=== PATIENT | male | born 1940 | race Caucasian/White ===

== ENCOUNTER → 2016-07-28 | Outpatient (CLI) | payer OTHER, MEDICARE | LOC: BHFA 16:00 | PROVIDERS: ATTEND Internal Medicine Cardiovascular Disease | DX: I47.2 Ventricular tachycardia (principal) ==

== ENCOUNTER → 2016-08-02 | Outpatient (CLI) | payer OTHER, MEDICARE | LOC: BHFA 11:30 | PROVIDERS: ATTEND Internal Medicine Cardiovascular Disease | DX: R94.31 Abnormal electrocardiogram [ECG] [EKG] (principal) | CPT/HCPCS: 78452; 93017; 93306; A9500; J2785 ==

== ENCOUNTER → 2016-08-03 | Day surgery (SDC) | payer OTHER, MEDICARE ==
[~2016-08-03] MED LIST: ATORVASTATIN CALCIUM 20 MG TAB PO SCH; ISOPROTERENOL HCL 0.2 MG/ML 5ML AMP ONE; LEVOTHYROXINE 125 MCG TAB PO SCH; LISINOPRIL 40 MG TAB PO SCH; METOPROLOL TARTRATE 25 MG TAB PO SCH; MIDAZOLAM 2 MG/2 ML VIAL IVP ONE; NS 1,000 ML IV ONE; PROBENECID 500 MG TAB PO SCH; PROPOFOL 200 MG/20 ML VIAL ONE; fentaNYL 100 MCG/2 ML INJ ONE; metFORMIN HCL 500 MG TAB PO SCH
--- NOTE | 2016-08-03 13:34 | CPEKG ---
Heart Rate: 82 RR Interval: 732 P-R Interval: 166 QRSD Interval: 160 QT Interval: 428 QTC Interval: 500 P Sisters: 103 QRS Sisters: -64 T Wave Sisters: 85 EKG Severity - ABNORMAL ECG - EKG Impression: ATRIAL-SENSED VENTRICULAR-PACED COMPLEXES Electronically Signed By: Shin Fierro 03-Aug-2016 15:53:00
[2016-08-03 14:13] LABS: % IMMATURE GRANULYOCYTES 0.1 % (0.0-1.1); ABSOLUTE IMMATURE GRANULOCYTES 0.01 10^3/uL (0.00-0.10); ADD DIFF? NO; ADD MORPH? NO; ADD SCAN? NO; ATYPICAL LYMPHOCYTE FLAG 10 (0-99); FRAGMENT RBC FLAG 0 (0-99); HEMATOCRIT 42.2 % (40.0-51.0); HEMOGLOBIN 13.8 g/dL (13.7-17.5); LEFT SHIFT FLG 0 (0-99); LIPEMIA HEMOLYSIS FLAG 80 (0-99); MEAN CELL HEMOGLOBIN 30.2 pg (27.9-34.1); MEAN CELL HEMOGLOBIN CONCENTR. 32.7 g/dL (32.4-36.7); MEAN CELL VOLUME 92.3 fL (81.5-99.8); MEAN PLATELET VOLUME 9.1 fL (8.7-11.7); PLATELET CLUMPS FLAG 20 (0-99); PLATELET COUNT 320 10^3/uL (150-400); RED BLOOD CELL COUNT 4.57 10^6/uL (4.40-6.38); RED CELL DISTRIBUTION WIDTH 13.5 % (11.5-15.2)
[2016-08-03 14:26] LABS: INR 0.99 (0.83-1.16)
[2016-08-03 14:27] LABS: APTT 25.3 SEC (23.0-38.0)
[2016-08-03 14:33] LABS: ANION GAP 12 mEq/L (8-16); CALCIUM 9.6 mg/dL (8.5-10.4); CARBON DIOXIDE 24 mEq/l (22-31); CHLORIDE 103 mEq/L (97-110); CREATININE 1.1 mg/dL (0.7-1.3); GLOMERULAR FILTRATION RATE > 60; GLUCOSE 85 mg/dL (70-100); MAGNESIUM 1.7 mg/dL (1.6-2.3); POTASSIUM 4.2 mEq/L (3.5-5.2); SODIUM 139 mEq/L (134-144)
--- NOTE | 2016-08-03 17:09 | EPPROC ---
Electrophysiology Procedure Note: NON INVASIVE PROGRAMMED STIMULATION INDICATION VT (10 seconds, 200 bpm) PROCEDURE PERFORMED 37.20 Non-invasive programmed electrical stimulation [NIPS] 33204-52 Programmed stimulation + pacing after IV drug Reprogramming of dual chamber pacemaker The patient arrived in the Electrophysiology Laboratory in the fasting state. Appropriate non-invasive blood pressure, pulse oximetry and end-tidal CO2 monitoring was established. Anesthesiologist Dr. Yanet Solares administered propofol sedation. Defibrillator hands free patches were attached to the anterolateral chest wall and attached to the defibrillator. Programmed stimulation from the RV pacemaker lead using standard protocol (2 CL , 3 extrastimuli, +/- isoproterenol). No arrhythmias were induced. Patient left the EP lab in stable condition. Patient Problems: Problems Problem Status Onset Ventricular arrhythmia Acute Primary osteoarthritis of left knee Acute 2Nd degree AV block Acute 2nd degree Acute
== END | disposition home or self-care (01) ==
LOC: FCATH 12:52
PROVIDERS: ATTEND Internal Medicine Cardiovascular Disease
PROC: 5A1213Z Performance of Cardiac Pacing, Intermittent (ICD-10-PCS; principal; 2016-08-03)
PROC: 4B02XSZ Measurement of Cardiac Pacemaker, External Approach (ICD-10-PCS; principal; 2016-08-03)
DX: I47.2 Ventricular tachycardia (principal); I44.1 Atrioventricular block, second degree; I10 Essential (primary) hypertension; Z95.0 Presence of cardiac pacemaker; E66.9 Obesity, unspecified; I25.10 Atherosclerotic heart disease of native coronary artery without angina pectoris; E11.9 Type 2 diabetes mellitus without complications
CPT/HCPCS: J2704; J3010

== ENCOUNTER → 2016-09-29 | Outpatient (CLI) | payer OTHER, MEDICARE | LOC: BHFA 15:45 | PROVIDERS: ATTEND Internal Medicine Cardiovascular Disease | DX: Z95.0 Presence of cardiac pacemaker (principal) ==

== ENCOUNTER 2016-12-08 06:03 | Inpatient (IN) | payer OTHER, MEDICARE ==
[2016-11-06 10:17] LABS: % IMMATURE GRANULYOCYTES 0.4 % (0.0-1.1); ABSOLUTE IMMATURE GRANULOCYTES 0.03 10^3/uL (0.00-0.10); ADD DIFF? NO; ADD MORPH? NO; ADD SCAN? NO; ATYPICAL LYMPHOCYTE FLAG 0 (0-99); FRAGMENT RBC FLAG 0 (0-99); HEMATOCRIT 40.2 % (40.0-51.0); HEMOGLOBIN 13.1 g/dL (13.7-17.5); LEFT SHIFT FLG 0 (0-99); LIPEMIA HEMOLYSIS FLAG 80 (0-99); MEAN CELL HEMOGLOBIN 30.1 pg (27.9-34.1); MEAN CELL HEMOGLOBIN CONCENTR. 32.6 g/dL (32.4-36.7); MEAN CELL VOLUME 92.4 fL (81.5-99.8); MEAN PLATELET VOLUME 8.8 fL (8.7-11.7); PLATELET CLUMPS FLAG 0 (0-99); PLATELET COUNT 267 10^3/uL (150-400); RED BLOOD CELL COUNT 4.35 10^6/uL (4.40-6.38); RED CELL DISTRIBUTION WIDTH 13.5 % (11.5-15.2)
[2016-11-06 10:35] LABS: ALANINE AMINOTRANSFERASE 22 IU/L (21-72); ALBUMIN 3.7 g/dL (3.5-5.0); ALKALINE PHOSPHATASE 59 IU/L (38-126); ANION GAP 11 mEq/L (8-16); ASPARTATE AMINOTRANSFERASE 15 IU/L (17-59); BILIRUBIN,TOTAL 0.5 mg/dL (0.1-1.4); CALCIUM 9.1 mg/dL (8.5-10.4); CARBON DIOXIDE 23 mEq/l (22-31); CHLORIDE 107 mEq/L (97-110); CREATININE 1.1 mg/dL (0.7-1.3); GLOMERULAR FILTRATION RATE > 60; GLUCOSE 88 mg/dL (70-100); POTASSIUM 4.2 mEq/L (3.5-5.2); SODIUM 141 mEq/L (134-144); TOTAL PROTEIN 6.5 g/dL (6.3-8.2)
[~2016-12-08 06:03] MED LIST changes: -ATORVASTATIN CALCIUM 20 MG TAB PO SCH; -ISOPROTERENOL HCL 0.2 MG/ML 5ML AMP ONE; -LEVOTHYROXINE 125 MCG TAB PO SCH; -LISINOPRIL 40 MG TAB PO SCH; -METOPROLOL TARTRATE 25 MG TAB PO SCH; -MIDAZOLAM 2 MG/2 ML VIAL IVP ONE; -NS 1,000 ML IV ONE; +NS IV ONE; +POVIDONE-IODINE 20 ML in SODIUM CL IRRIG SOLUTION 500 ML IRR ONE; -PROBENECID 500 MG TAB PO SCH; -PROPOFOL 200 MG/20 ML VIAL ONE; +ROPIVACAINE 0.2% 80 MG, EPINEPHrine 0.2 MG, KETOROLAC TROMETHAMINE 30 MG in BAG 0 ML IU ONE; +TRANEXAMIC ACID IV ONE; -fentaNYL 100 MCG/2 ML INJ ONE; -metFORMIN HCL 500 MG TAB PO SCH
[2016-12-08] MEDS ORDERED: FAMOTIDINE 20 MG TAB PO ONE (06:10)
[2016-12-08] MEDS ORDERED: DEXAMETHASONE 4 MG/ML VIAL IVP ONE (06:10)
[2016-12-08] MEDS ORDERED: ACETAMINOPHEN 325 MG TAB PO ONE (06:10)
[2016-12-08] MEDS ORDERED: LR 1,000 ML IV ONE (06:28)
[2016-12-08] MEDS ORDERED: LIDOCAINE 1% 2 ML INJ ID PRN (06:28)
--- NOTE | 2016-12-08 06:41 | PDHPUP ---
History & Physical Update H&P update statement: This history and physical update is based on an assessment of the patient which was completed after admission or registration (within 24 hours), but prior to the surgery/procedure. H&P update: H&P reviewed & patient examined, no change in patient's condition since H&P completed
[2016-12-08] MEDS ORDERED: VANCOMYCIN 1 GM VIAL ONE (06:47)
[2016-12-08] MEDS ORDERED: ceFAZolin 1 GM/5 ML SYR ONE (06:48)
[2016-12-08] MEDS ORDERED: MIDAZOLAM 2 MG/2 ML VIAL IVP ONE (07:02)
[2016-12-08] MEDS ORDERED: MIDAZOLAM 2 MG/2 ML VIAL ONE (07:04)
--- NOTE | 2016-12-08 07:04 | PDANEPAE ---
ANE History of Present Illness 76 yo for R TKA ANE Past Medical History - Cardiovascular History Hx Hypertension: Yes Hx Arrhythmias: Yes Hx Chest Pain: No Hx Coronary Artery / Peripheral Vascular Disease: Yes Hx CHF / Valvular Disease: No Hx Palpitations: No Cardiovascular History Comment: SECOND DEGREE BLOCK. 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 INSTRUCTED TO BRING DOS - Neurologic History Hx Cerebrovascular Accident: No Hx Seizures: No Hx Dementia: No - Endocrine History Hx Diabetes: Yes Endocrine History Comment: TYPE 2 DIABETES. HYPOTHYROID - Renal History Hx Renal Disorders: Yes Renal History Comment: HX OF KIDNEY STONE - Liver History Hx Hepatic Disorders: No - Neurological & Psychiatric Hx Hx Neurological and Psychiatric Disorders: No - Cancer History Hx Cancer: No - Congenital Disorder History Hx Congenital Disorders: No - GI History Hx Gastrointestinal Disorders: No Gastrointestinal History Comment: POSS POLYP X 1 5-6 Y AGO - Other Health History Other Health History: OSTEOARTHRITIS. GOUT. MISSING TEETH - Chronic Pain History Chronic Pain: Yes (RT KNEE) - Surgical History Prior Surgeries: PACEMAKER 2015. LT TOTAL KNEE 12/2013. KNEE SCOPE UNKNOWN SIDE ANE Review of Systems Review of Systems: - Exercise capacity METS (RN): 4 METS - Pacemaker Pacemaker Contracts Specialist: [employer] Date Pacemaker Last Checked: 09/28/2016 ANE Patient History - Allergies Allergies/Adverse Reactions: No Known Allergies Allergy (Verified 08/03/16 14:39) - Home Medications Home medications: home medication list seen and reviewed Home Medications: Atorvastatin Calcium [Lipitor 20 mg (*)] 10 mg PO DAILY AT 6PM 08/03/16 [Last Taken 08/02/16] Levothyroxine Sodium 125 mcg PO DAILY06 08/03/16 [Last Taken 08/02/16] Lisinopril 40 mg PO DAILY06 08/03/16 [Last Taken 08/01/16] Metformin HCl mg PO BIDMEAL 08/03/16 [Last Taken 08/01/16] Metoprolol Tartrate [Lopressor 25 mg (*)] 25 mg PO BID 08/03/16 [Last Taken ] Probenecid 500 mg PO BID 08/03/16 [Last Taken 08/01/16] - NPO status NPO Status: no food or drink >8 hours NPO Since - Liquids (Date): 12/07/16 NPO Since - Liquids (Time): 18:00 NPO Since - Solids (Date): 12/07/16 NPO Since - Solids (Time): 15:00 - Anes Hx Anes Hx: no prior problems - Smoking Hx Smoking Status: Former smoker - Family Anes Hx Family Hx Anesthesia Complications: NONE ANE Labs/Vital Signs - Labs Result Diagrams: 11/06/16 10:05 11/06/16 10:05 - Vital Signs Blood Pressure: 134/72 Heart Rate: 78 Respiratory Rate: 16 O2 Sat (%): 90 Height: 5 ft 6 in Weight: 113.398 kg ANE Physical Exam - Airway Neck exam: FROM Mallampati Score: Class 2 Mouth exam: normal dental/mouth exam - Pulmonary Pulmonary: no respiratory distress - Cardiovascular Cardiovascular: regular rate and rhythym - ASA Status ASA Status: III ANE Anesthesia Plan Anesthesia Plan: spinal Regional Anesthesia: adductor canal FNB
[2016-12-08] MEDS ORDERED: fentaNYL 100 MCG/2 ML INJ ONE (07:12)
[2016-12-08] MEDS ORDERED: PROPOFOL/EMULSION 500 MG/50 ML BOTTLE IV ONE (07:13)
[2016-12-08] MEDS: ceFAZolin 2 GM/SWFI 2 GM/20 ML SYR IVP ONE ×2 (07:28→08:10)
[2016-12-08] MEDS ORDERED: NS IV ONE (07:45)
[2016-12-08] MEDS ORDERED: TRANEXAMIC ACID IV ONE (07:45)
[2016-12-08] MEDS ORDERED: ROPIVACAINE HCL 150 MG/30 ML INJ ONE (08:30)
[2016-12-08] MEDS ORDERED: clonIDINE 1 MG/10 ML VIAL EP ONE (08:31)
[2016-12-08] MEDS ORDERED: ONDANSETRON 4 MG/2 ML VIAL IVP PRN ×2 (08:50→09:02)
[2016-12-08] MEDS ORDERED: HYDROmorphONE/DILAUDID 1 MG/ML INJ IVP PRN (08:50)
[2016-12-08] MEDS ORDERED: NALOXONE HCL 0.4 MG/ML INJ IVP PRN (08:50)
[2016-12-08] MEDS ORDERED: fentaNYL 100 MCG/2 ML INJ IVP PRN (08:50)
--- NOTE | 2016-12-08 08:53 | POSTOPPROG ---
Post Op Note Date of Operation: 12/08/16 Surgeon: Jasper Maya Traffic Attendant: Eloisa Muñoz Anesthesiologist: Dr. Heart Anesthesia: IV Sedation, Spinal Post-op Diagnosis: Right knee severe degenerative arthritis Procedure: Right total knee arthroplasty Inf/Abcess present in the surg proc area at time of surgery?: No EBL: 50-100 (Adductor canal block in PACU)
[2016-12-08] MEDS ORDERED: diphenhydrAMINE 25 MG CAP PO PRN (09:02)
[2016-12-08] MEDS ORDERED: POLYETHYLENE GLYCOL 3350 17 GM PKT PO PRN (09:02)
[2016-12-08] MEDS ORDERED: PROMETHAZINE HCL 25 MG SUPPR PR PRN (09:02)
[2016-12-08] MEDS ORDERED: ONDANSETRON DISINTEGRATING 4 MG TAB PO PRN (09:02)
[2016-12-08] MEDS ORDERED: PROMETHAZINE HCL 25 MG/ML INJ IVP PRN (09:02)
[2016-12-08] MEDS ORDERED: METOCLOPRAMIDE 10 MG/2 ML VIAL IVP PRN (09:02)
[2016-12-08] MEDS ORDERED: LACTULOSE 20 GM/30 ML UDCUP PO PRN (09:02)
[2016-12-08] MEDS ORDERED: CYCLOBENZAPRINE 10 MG TAB PO PRN (09:02)
[2016-12-08] MEDS ORDERED: traMADol 50 MG TAB PO PRN (09:02)
[2016-12-08] MEDS ORDERED: DIPHENOXYLATE/ATROPINE LOMOTIL 1 TAB PO PRN (09:02)
[2016-12-08] MEDS ORDERED: MAGNESIUM HYDROXIDE 30 ML UDCUP PO PRN (09:02)
[2016-12-08] MEDS ORDERED: BISACODYL 10 MG SUPP PR PRN (09:02)
[2016-12-08] MEDS ORDERED: KETOROLAC 30 MG/1 ML SDV IVP PRN (09:02)
[2016-12-08] MEDS ORDERED: oxyCODONE IR 5 MG TAB PO PRN (09:02)
[2016-12-08] MEDS ORDERED: TEMAZEPAM 15 MG CAP PO PRN (09:02)
[2016-12-08] MEDS ORDERED: LR 1,000 ML IV SCH (09:30)
--- NOTE | 2016-12-08 10:09 | POSTANESTH ---
Post Anesthetic Evaluation Cardiovascular Status: Normal, Stable Respiratory Status: Normal, Stable Level of Consciousness/Mental Status: Can Participate in Eval Pain Control: Adequate, Prn Tx Ordered Nausea/Vomiting Control: Adequate, Prn Tx Ordered Complications Possibly Related to Anesthesia: None Noted
[2016-12-08] MEDS: TRANEXAMIC ACID 650 MG TAB PO SCH ×2 (11:41→19:00)
[2016-12-08] MEDS: ACETAMINOPHEN 325 MG TAB PO SCH ×3 (11:41→23:59)
--- NOTE | 2016-12-08 13:37 | GOP ---
[f rep st] OPERATIVE REPORT DATE OF OPERATION: 12/08/2016 SURGEON: Jasper Maya MD OIL FIELD TESTER: Ze Albarran and Rayn Muñoz. ANESTHESIA: A combination of Marcaine, spinal, IV sedation, and adductor canal block. PREOPERATIVE DIAGNOSIS: Right knee severe degenerative arthritis, with varus deformity. POSTOPERATIVE DIAGNOSIS: Right knee severe degenerative arthritis, with varus deformity. PROCEDURE PERFORMED: A right total knee arthroplasty, cemented, Delgado and Nephew Journey II, posteri or stabilized. FINDINGS: DESCRIPTION OF PROCEDURE: The patient was given 2 g of preoperative IV Ancef within 60 minutes of stephenson rgery. He also received IV tranexamic acid at a dose of 10 mg/kg. He was placed on the operating ro om table and given spinal anesthesia, with Marcaine, by Dr. Ivory. He was then placed supine and given IV sedation. A Jenkins catheter was not used. He wore a JESSI stocking and SCD on the nonoperativ e leg. A bolster was placed under his right hip to prevent excessive external rotation of the leg. His right lower extremity was prepped with ChloraPrep from the upper thigh tourniquet to the tips of the toes. It was draped free using sterile sheets, stockinette, and Ioban plastic adhesive drape. T he lower leg was wrapped with compressive Coban. The leg was exsanguinated with elevation and a 6-in ch compressive wrap, and the pneumatic tourniquet was inflated to 300 mmHg. He had a short bulky thi gh. The World Health Organization time-out was performed to verify the correct patient identity and the c orrect surgical side. The [place] time-out was also performed. The TrustDegreesayo leg holding device was sterilely attached to the operating room table and used throughout the procedure to help position the knee. A straight midline incision was made centered on the patell a. Subcutaneous tissues were sharply divided, and hemostasis was obtained using electrocautery. A medial subcutaneous flap was developed, and the capsule and synovium were opened in a medial parapa tellar fashion. Extensive degenerative changes were present in the medial compartment and patellofem oral joint. The medial capsule and periosteum were elevated off the rim of the medial tibial plateau , all the way around to the posteromedial corner. The medial collateral ligament was released enough to balance the medial side of the knee. In order to improve exposure, his patella was prepared first. The original thickness of the patella was measured. Peripheral osteophytes were removed. I cut a flat surface on the back of the patella. His patella was sized for a 38 mm resurfacing component. I removed enough bone from the patella, s uch that the remaining bone plus the thickness of the patellar component recreated the original thick ness of the patella. The composite thickness was 24 mm. The intramedullary alignment guide system was used to set up the distal femoral cut. The distal femu r was cut in 5 degrees of valgus. Because of a slight preoperative flexion contracture, I made a +2 mm cut on the distal femur. The sizing jig was used to determine proper femoral sizing. He was a tr ue size 6 without a shift. The 5-in-1 cutting block was applied, and the anterior and posterior cond ylar cuts and chamfer cuts were made. The final jig was used to remove the central portion of the di stal femur to accommodate the posterior stabilized femoral component. I was careful to determine pro per rotation by referencing off [place] line. Each cut was checked for accuracy before and after i t was made. The femur was sized for a size 6 posterior stabilized component. The trial component wa s tapped securely into place and was an excellent fit. Next, the tibia was prepared. The proximal tibial cut was made using the extramedullary alignment gu janay system. The cut was made in a few degrees of posterior slope. I was careful to achieve proper v arus/valgus alignment and proper rotation. The posterior compartment was cleared of meniscal remnant s. Osteophytes were removed from the back of the femoral condyles. I checked his flexion and extens ion gaps. He was still a little bit tight medially, and so I did some additional distal release of h is medial collateral ligament. At that point, his flexion and extension gaps were equal and balanced . His tibia was sized for a size 5 component. With the trial components in place, I selected a 9 mm po lyethylene posterior stabilized tibial insert. The knee came to full extension and flexed to 120 deg bee. There was no overstuffing in flexion. His collateral ligaments were stable and balanced in 90 degrees of flexion and full extension. The trial patellar button was applied, and tracking was chec ked. Tracking was excellent without any digital pressure. 40 mL of the joint anesthetic cocktail was injected into the posterior capsule, the periarticular str uctures, the quadriceps muscle and tendon areas, and the subcutaneous tissues along the skin edges. A second dose of IV tranexamic acid was given at a dose of 10 mg/kg. The surfaces were prepared for cementing. They were carefully cleaned with the pulsating lavage irri gation and thoroughly dried. The CarboJet device was used to blow dry the cancellous surfaces. A do uble batch of high-viscosity methylmethacrylate cement with 2 g of powdered vancomycin added was mixe d. While it was still in a semi-liquid state, all 3 components were cemented in place. Excess cemen t was removed before it hardened. The 9 mm trial tibial insert was re-tried and was the proper thickness. The actual component was ins erted and locked into place. The knee was thoroughly irrigated 1 final time with a dilute Betadine s olution. The tourniquet was deflated. Total tourniquet time was 50 minutes. The vastus medialis portion of the extensor mechanism was repaired with several interrupted figure-of -eight #2 FiberWire sutures. The capsule and synovium were closed first with multiple interrupted fi [id number]-[id number] 0 PDS sutures, followed by a running #2 barbed Ethicon Stratafix PDO suture. The subcu taneous tissues were closed with a running 0 barbed Ethicon Stratafix Monoderm suture. The skin was closed with a running 3-0 barbed Ethicon Stratafix Monoderm subcuticular suture. The skin was sealed with half-inch Steri-Strips. The wound was covered with Xeroform gauze and flat 4 x 4's. The knee was wrapped with Kerlix and 6-inch compressive wrap. A long-leg JESSI stocking and SCD were applied, f ollowed by the cooling device. He wore a stocking and SCD on the opposite leg during the procedure. I used a size 6 cemented Delgado and Nephew Oxinium posterior stabilized femoral component, a size 5 ce mented tibial base plate, a 9 mm posterior stabilized tibial insert, and a 38 mm cemented round all-p olyethylene resurfacing patellar component. The estimated blood loss following placement of the tourniquet was 100 cc. The sponge and needle cou nt were correct on 2 occasions. The patient was awakened from anesthesia, transferred to his hospital [facility], and taken to PACU in sa tisfactory condition. There were no recognized intraoperative complications. In the PACU, for additional postoperative pain control, Dr. Ivory performed an adductor canal bloc kSheeba Albarran and Ryan Muñoz acted as surgical assistants. Their assistance was a medical necess ity for safe completion of the procedure. /[id number]/MODL
[2016-12-08] MEDS: ceFAZolin 2 GM/DEXTROSE 100 ML IV SCH ×2 (16:46→23:59)
[2016-12-08] MEDS: FAMOTIDINE 20 MG TAB PO SCH (20:19)
[2016-12-08] MEDS: metFORMIN HCL 500 MG TAB PO SCH (20:19)
[2016-12-08] MEDS: ASPIRIN 325 MG TAB PO SCH (20:19)
[2016-12-08] MEDS: METOPROLOL TARTRATE 25 MG TAB PO SCH (20:20)
[2016-12-08] MEDS: SENNOSIDES/DOCUSATE SODIUM TAB PO SCH (20:20)
[2016-12-08] MEDS ORDERED: PNEUMOC 13-VAL CONJ-DIP CRM/PF 0.5 ML SYR IM ONE (21:25)
[2016-12-08] MEDS ORDERED: FLU VACC QS 2017-18 (3YR+)/PF 0.5 ML SYR (FLUARIX QUAD) IM ONE ×2 (21:25→23:56)
[2016-12-09] MEDS: TRANEXAMIC ACID 650 MG TAB PO SCH (01:08)
[2016-12-09 04:23] VITALS: RESP 16
[2016-12-09 05:26] LABS: HEMATOCRIT 36.9 % (40.0-51.0); HEMOGLOBIN 11.8 g/dL (13.7-17.5)
[2016-12-09] MEDS: ACETAMINOPHEN 325 MG TAB PO SCH ×2 (05:50→13:54)
[2016-12-09] MEDS ORDERED: LISINOPRIL 40 MG TAB PO SCH (06:00)
[2016-12-09] MEDS ORDERED: LEVOTHYROXINE 125 MCG TAB PO SCH (06:00)
--- NOTE | 2016-12-09 07:25 | SOAPPROG ---
SOAP Progress Note Assessment/Plan: Assessment: Afebrile. Awake and alert. Very little pain. He has been up and walking in the room. His dressing is dry. Postop films look excellent. Plan: Continue physical therapy. Dressing change before discharge. Discharged later today. 12/09/16 07:24 Objective: Vital Signs Temp Pulse Resp BP Pulse Ox 36.9 C 64 16 121/65 H 97 12/09/16 07:16 12/09/16 07:16 12/09/16 07:16 12/09/16 07:16 12/09/16 07:16 Laboratory Results 12/09/16 04:20 11/06/16 10:05 12/08/16 12/09/16 12/10/16 05:59 05:59 05:59 Intake Total 1410 325 Output Total 700 Balance 710 325 ICD10 Worksheet Patient Problems: Problems Problem Status Onset Osteoarthritis of right knee Acute 2Nd degree AV block Acute 2nd degree Acute Primary osteoarthritis of left knee Acute Ventricular arrhythmia Acute
--- NOTE | 2016-12-09 07:40 | GDS ---
[f rep st] DISCHARGE SUMMARY ADMISSION DIAGNOSIS: Right knee arthritis. DISCHARGE DIAGNOSIS: Right knee arthritis. TEST PERFORMED: 12/08/2016: Right total knee arthroplasty. POSTOPERATIVE COMPLICATIONS: None. CONDITION ON DISCHARGE: Improved. DESCRIPTION OF HOSPITAL COURSE: The patient was admitted to the hospital the morning of surgery. Hi s admission CBC was normal. The same day, he underwent a right total knee arthroplasty. Postoperati vely, he was treated with multimodal DVT prophylaxis, including aspirin and early mobilization. On t he first postoperative day his hemoglobin and hematocrit were 11.8 and 36.9. He was seen by Physical Therapy and made excellent progress with ambulation, knee range of motion and stairs. By the time o f discharge, he was afebrile and was independent walking with a walker. DISPOSITION: The patient discharged to his home. He will go to outpatient physical therapy at [facility] next week. He may progress to full weightbearing on the right as tolerated. Continue aspirin 3 25 mg p.o. daily for 21 days. He has prescriptions for oxycodone and tramadol for pain control. Use JESSI stockings for 1 week. I will see him back in the office on December 23, 2016. If there are any problems, he is to call me at the office. /[id number]/MODL
[2016-12-09] MEDS ORDERED: FERROUS SULFATE 140 MG TAB.ER PO SCH (09:00)
[2016-12-09] MEDS ORDERED: ATORVASTATIN CALCIUM 20 MG TAB PO SCH (09:00)
[2016-12-09] MEDS: ASPIRIN 325 MG TAB PO SCH (09:52)
[2016-12-09] MEDS: metFORMIN HCL 500 MG TAB PO SCH (09:53)
[2016-12-09] MEDS: SENNOSIDES/DOCUSATE SODIUM TAB PO SCH (09:53)
[2016-12-09] MEDS: METOPROLOL TARTRATE 25 MG TAB PO SCH (09:54)
[2016-12-09] MEDS: FAMOTIDINE 20 MG TAB PO SCH (09:57)
[2016-12-09 11:14] VITALS: BP 120/64; PULSE 70; O2SAT 91
[2016-12-09 11:16] VITALS: TEMP 98.3
--- NOTE | 2016-12-09 11:24 | ASMTCMCOM ---
CM Note CM Note Notes: PT/OT clear pt for home. Pt medically stable for d/c, no CM d/c needs identified. Date Signed: 12/09/2016 11:23 AM Electronically Signed By:RICHIE Richards
--- NOTE | 2016-12-09 16:24 | ASDISCHSUM ---
Discharge Information Plan Status:Home with No Needs Medically Cleared to Leave: Discharge Date:12/09/2016 01:48 PM CM D/C Disposition:Home, Routine, Self-Care ADT D/C Disposition:Home, Routine, Self-Care Projected Discharge Date:02/12/2017 11:00 AM Transportation at D/C: Discharge Delay Reason: Follow-Up Date:02/12/2017 11:00 AM Discharge Slot: Final Diagnosis: Placement Information Referral Type:Palliative Care Referral ID:[id number] Provider Name: Address 1: Phone Number: Address 2: Fax Number: City: Selection Factors: State: Patient Contact Information Contact Name:JASMIN Relationship: Address:[address] Work Phone: Joe:[facility] Phone: [facility] Code:[place] [address] Email: Financial Information Financial Class: Primary Plan Desc:MEDICARE INPATIENT Primary Plan Number:[id number] Secondary Plan Desc:AARP/MDR SUPPLEMENT Secondary Plan Number:[id number] Assessment Information CM Consumer Marketing Specialist Assessment CJR Did you go to joint Answers: No (why?) Notes: Had the same surgery 3 class? years ago CM Note CM Note Notes: Spoke with [place] today, November 23. He stated that he has had this surgery 3 years ago, so is prepared for what is to come. [place] [address] [place] and his will be taking him to and from. His will also be caring for him post surgery. He does not believe he will need any accommodations post surgery from the Case Management team. Date Signed: 11/23/2016 10:49 AM Electronically Signed By:Beartiz Marquis [facility] Progress Note CM Note CM Note Notes: PT/OT clear pt for home. Pt medically stable for d/c, no CM d/c needs identified. Date Signed: 12/09/2016 11:23 AM Electronically Signed By:RICHIE Richards Intervention Information
== END 2016-12-09 13:48 | disposition home or self-care (01) | DRG 470 ==
LOC: F3N 06:03 → EDSTATUS 07:15 → F3N 10:47
PROVIDERS: ADMIT Orthopaedic Surgery; ATTEND Orthopaedic Surgery
PROC: 0SRC0J9 Replacement of Right Knee Joint with Synthetic Substitute, Cemented, Open Approach (ICD-10-PCS; principal; 2016-12-08 07:15)
DX: M17.11 Unilateral primary osteoarthritis, right knee (principal); I10 Essential (primary) hypertension; G47.33 Obstructive sleep apnea (adult) (pediatric); E11.9 Type 2 diabetes mellitus without complications; E03.9 Hypothyroidism, unspecified; M10.9 Gout, unspecified; Z95.0 Presence of cardiac pacemaker; Z23 Encounter for immunization
CPT/HCPCS: 97116-GP; 97161-GP; 97165-GO; C1713; G0008; G0009; G8978-GP-CJ; G8979-GP-CI; G8980-GP-CI; G8987-GO-CI; G8988-GO-CI; G8989-GO-CI; J0171; J0690; J0735; J1100; J1885; J2250; J2704; J2795; J3010; J3370

== ENCOUNTER → 2018-05-04 | Outpatient (CLI) | payer OTHER, MEDICARE | LOC: FIMAGING 10:11 | PROVIDERS: ATTEND Specialist | DX: N20.0 Calculus of kidney (principal) ==

== ENCOUNTER → 2018-05-08 | Outpatient (CLI) | payer OTHER, MEDICARE ==
[~2018-05-08] MED LIST changes: +IOPAMIDOL (ISOVUE-300) 100 ML BTL ONE; -NS IV ONE; -POVIDONE-IODINE 20 ML in SODIUM CL IRRIG SOLUTION 500 ML IRR ONE; -ROPIVACAINE 0.2% 80 MG, EPINEPHrine 0.2 MG, KETOROLAC TROMETHAMINE 30 MG in BAG 0 ML IU ONE; -TRANEXAMIC ACID IV ONE
== END ==
LOC: FIMAGING 13:55
PROVIDERS: ATTEND Specialist
DX: N20.0 Calculus of kidney (principal); K57.30 Diverticulosis of large intestine without perforation or abscess without bleeding
CPT/HCPCS: 74178; Q9967

== ENCOUNTER 2018-06-21 11:34 | Day surgery (SDC) | payer OTHER, MEDICARE ==
[2018-06-21] MEDS ORDERED: NALOXONE HCL 0.4 MG/ML INJ IVP PRN (12:01)
[2018-06-21] MEDS ORDERED: fentaNYL 100 MCG/2 ML INJ IVP PRN (12:01)
[2018-06-21] MEDS ORDERED: FLUMAZENIL 0.5 MG/5 ML MDV IVP PRN (12:01)
[2018-06-21] MEDS ORDERED: MIDAZOLAM 2 MG/2 ML VIAL IVP PRN (12:01)
[2018-06-21] MEDS ORDERED: ALTEPLASE 2 MG VIAL IVP PRN (12:01)
[2018-06-21] MEDS ORDERED: PROTAMINE SULFATE 50 MG/5 ML VIAL IVP PRN (12:01)
[2018-06-21] MEDS ORDERED: HEPARIN 10,000 UNIT/10 ML MDV (1,000 UNIT/ML) IVP PRN (12:01)
[2018-06-21] MEDS ORDERED: MEPERIDINE 25 MG/ML SYR IVP PRN (12:01)
[2018-06-21] MEDS ORDERED: GLUCAGON HCL 1 MG VIAL IVP PRN (12:01)
[2018-06-21] MEDS ORDERED: NS 1,000 ML IV SCH (12:15)
[2018-06-21 12:44] LABS: INR 0.98 (0.83-1.16); PROTIME(PATIENT) 12.6 SEC (12.0-15.0)
--- NOTE | 2018-06-21 12:51 | PDPROPOC ---
Sedation Plan of Care Sedation Plan of Care: vital signs stable, mental status noted, patient educated of risks, benefits, alternatives, patient can tolerate sedation ASA Classification: ASA 2 Planned drugs: fentanyl, midazolam Mallampati Score: Class 1 Mallampati Reference Image: Patient passed 3-3-2 rule?: Yes
--- NOTE | 2018-06-21 12:52 | PDGENHP ---
History & Physical Chief Complaint: LT KIDNEY STONE History of Present Illness: MODERATE OBSTRUCTION Pertinent Past, Social, Family History: TWO KNEE SURGERIES, PACE MAKER Relevant Physical Exam: IN NO DISTRESS. CT REVIEWED Cardiorespiratory Assessment: RRR, CTA
[2018-06-21] MEDS ORDERED: ONDANSETRON 4 MG/2 ML VIAL IVP PRN (14:43)
[2018-06-21] MEDS ORDERED: ACETAMINOPHEN 325 MG TAB PO PRN (14:43)
--- NOTE | 2018-06-21 14:43 | PDRADPN ---
Radiology Procedure Note Date of Procedure: 06/21/18 Radiologist: Maricarmen Acosta Anesthesia: IV Sedation Pre-op Diagnosis: LT RENAL STONE Post-op Diagnosis: SAME Indication: OR STONE ACCESS Procedure: PERC NEPH Inf/Abcess present in the surg proc area at time of surgery?: No
[2018-06-21] MEDS ORDERED: IOPAMIDOL (ISOVUE-300) 100 ML BTL ONE (14:52)
[2018-06-21 17:04] VITALS: BP 147/83
[2018-06-22] MEDS ORDERED: MINERAL OIL 10 ML VIAL ONE (10:03)
== END 2018-06-21 17:25 | disposition home or self-care (01) ==
LOC: FIMAGING 11:34
PROVIDERS: ATTEND Specialist
PROC: 0T9130Z Drainage of Left Kidney with Drainage Device, Percutaneous Approach (ICD-10-PCS; principal; 2018-06-21 15:55)
DX: N13.2 Hydronephrosis with renal and ureteral calculous obstruction (principal); E66.09 Other obesity due to excess calories; Z68.38 Body mass index [BMI] 38.0-38.9, adult; Z96.653 Presence of artificial knee joint, bilateral; Z95.0 Presence of cardiac pacemaker
CPT/HCPCS: 50432; 99152; C1729; C1769; J1644; J1956; J2250; J2310; J3010; Q9967

== ENCOUNTER 2018-06-22 10:12 | Observation (INO) | payer OTHER, MEDICARE ==
[2018-06-22] MEDS ORDERED: levOFLOXACIN 500 MG/DEXTROSE 100 ML IV ONE (10:36)
[2018-06-22] MEDS ORDERED: LR 1,000 ML IV ONE (10:37)
--- NOTE | 2018-06-22 11:47 | PDHPUP ---
History & Physical Update H&P update statement: This history and physical update is based on an assessment of the patient which was completed after admission or registration (within 24 hours), but prior to the surgery/procedure. H&P update: no change in patient's condition since H&P completed
--- NOTE | 2018-06-22 11:57 | PDANEPAE ---
ANE Past Medical History - Cardiovascular History Hx Hypertension: Yes Hx Arrhythmias: Yes Hx Chest Pain: No Hx Coronary Artery / Peripheral Vascular Disease: Yes Hx CHF / Valvular Disease: No Hx Palpitations: Yes Cardiovascular History Comment: SECOND DEGREE BLOCK;. 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 INSTRUCTED TO BRING DOS - Neurologic History Hx Cerebrovascular Accident: No Hx Seizures: No Hx Dementia: No - Endocrine History Hx Diabetes: Yes Endocrine History Comment: TYPE 2 DIABETES;. HYPOTHYROID - Renal History Hx Renal Disorders: Yes Renal History Comment: HX OF KIDNEY STONE; - Liver History Hx Hepatic Disorders: No - Neurological & Psychiatric Hx Hx Neurological and Psychiatric Disorders: No - Cancer History Hx Cancer: No - Congenital Disorder History Hx Congenital Disorders: No - GI History Hx Gastrointestinal Disorders: No Gastrointestinal History Comment: POSS POLYP X 1 5-6 Y AGO; - Other Health History Other Health History: OSTEOARTHRITIS;. GOUT;. MISSING TEETH;. Knee pain; - Chronic Pain History Chronic Pain: Yes (RT KNEE) - Surgical History Prior Surgeries: PACEMAKER 2015. LT TOTAL KNEE 12/2013. KNEE SCOPE UNKNOWN SIDE ANE Review of Systems Review of Systems: - Exercise capacity METS (RN): 4 METS - Pacemaker Pacemaker Type: Permanent Pacer/Defib Pacemaker Tele Marketing Executive: [employer] Date Pacemaker Last Checked: 09/28/2016 ANE Patient History - Allergies Allergies/Adverse Reactions: No Known Allergies Allergy (Verified 08/03/16 14:39) - Home Medications Home Medications: Atorvastatin Calcium [Lipitor 20 mg (*)] 20 mg PO DAILY AT 6PM 08/03/16 [Last Taken 06/21/18] Levothyroxine Sodium 125 mcg PO DAILY06 08/03/16 [Last Taken 06/21/18] Lisinopril 30 mg PO DAILY06 08/03/16 [Last Taken 06/21/18] Metformin HCl 500 mg PO BID 08/03/16 [Last Taken 06/21/18] Metoprolol Tartrate [Lopressor 25 mg (*)] 25 mg PO BID 08/03/16 [Last Taken 10/02] Probenecid 500 mg PO BID 08/03/16 [Last Taken 06/21/18] - NPO status NPO Since - Liquids (Date): 06/21/18 NPO Since - Liquids (Time): 22:00 NPO Since - Solids (Date): 06/21/18 NPO Since - Solids (Time): 22:00 - Smoking Hx Smoking Status: Former smoker - Family Anes Hx Family Hx Anesthesia Complications: NONE ANE Labs/Vital Signs - Vital Signs Blood Pressure: 138/97 Heart Rate: 108 Respiratory Rate: 16 O2 Sat (%): 91 Height: 167.64 cm Weight: 108.862 kg ANE Physical Exam - Airway Mallampati Score: Class 2 - ASA Status ASA Status: III ANE Anesthesia Plan Anesthesia Plan: general endotracheal anesthesia, GA w LMA
[2018-06-22] MEDS ORDERED: MIDAZOLAM 2 MG/2 ML VIAL ONE (12:36)
[2018-06-22] MEDS ORDERED: PROPOFOL 200 MG/20 ML VIAL ONE (12:37)
[2018-06-22] MEDS ORDERED: fentaNYL 100 MCG/2 ML INJ ONE ×2 (12:37→15:03)
[2018-06-22] MEDS ORDERED: ONDANSETRON 4 MG/2 ML VIAL ONE (12:39)
[2018-06-22] MEDS ORDERED: ROCURONIUM 50 MG/5 ML VIAL ONE (12:39)
[2018-06-22] MEDS ORDERED: METOCLOPRAMIDE 10 MG/2 ML VIAL ONE (12:39)
[2018-06-22] MEDS ORDERED: METOPROLOL TARTRATE 5 MG/5 ML INJ ONE (13:05)
--- NOTE | 2018-06-22 15:18 | POSTOPPROG ---
Post Op Note Date of Operation: 06/23/18 Surgeon: Antwon Lakhani (# [id number]) Anesthesia: GET(General Endotracheal) Pre-op Diagnosis: Large vol. left nephrolithiasis > 2 cm Post-op Diagnosis: Large vol. left nephrolithiasis > 2 cm Procedure: PCNL w/ fluoro guidance > 1 hr., neph. tube placement Findings: See op note Inf/Abcess present in the surg proc area at time of surgery?: No EBL: 50-100 (50 cc) Drains: Nephrostomy (8 Fr.) Specimen(s): Kidney stones
[2018-06-22] MEDS ORDERED: ONDANSETRON 4 MG/2 ML VIAL IVP PRN ×2 (15:19→15:21)
[2018-06-22] MEDS ORDERED: HYDROmorphONE/DILAUDID 1 MG/ML INJ IVP PRN ×2 (15:19→15:21)
[2018-06-22] MEDS ORDERED: OXYCODONE/APAP 5/325 TAB PO PRN (15:19)
[2018-06-22] MEDS ORDERED: PROMETHAZINE HCL 25 MG/ML INJ IVP PRN ×2 (15:19→15:21)
[2018-06-22] MEDS ORDERED: LR 500 ML IV PRN (15:21)
[2018-06-22] MEDS ORDERED: NALOXONE HCL 0.4 MG/ML INJ IVP PRN (15:21)
[2018-06-22] MEDS ORDERED: fentaNYL 100 MCG/2 ML INJ IVP PRN (15:21)
[2018-06-22] MEDS ORDERED: D50W 25 GM/50 ML SYR IVP PRN (15:22)
--- NOTE | 2018-06-22 15:22 | POSTANESTH ---
Post Anesthetic Evaluation Cardiovascular Status: Similar to Pre-Op Cond Respiratory Status: Normal, Stable Level of Consciousness/Mental Status: Can Participate in Eval Pain Control: Adequate, Prn Tx Ordered Nausea/Vomiting Control: Adequate, Prn Tx Ordered Complications Possibly Related to Anesthesia: None Noted
[2018-06-22] MEDS: 1/2 NS 1,000 ML IV SCH (17:05)
[2018-06-22] MEDS ORDERED: IOPAMIDOL (ISOVUE-300) 100 ML BTL ONE (17:37)
[2018-06-22] MEDS: INSULIN REGULAR HUMAN 100 UNIT/ML UNIT SC SCH ×2 (19:03→22:46)
[2018-06-22] MEDS: METOPROLOL TARTRATE 25 MG TAB PO SCH (22:34)
[2018-06-22] MEDS: metFORMIN HCL 500 MG TAB PO SCH (22:34)
[2018-06-23] MEDS: 1/2 NS 1,000 ML IV SCH ×2 (02:17→09:15)
[2018-06-23] MEDS ORDERED: LEVOTHYROXINE 125 MCG TAB PO SCH (06:00)
[2018-06-23] MEDS ORDERED: LISINOPRIL 40 MG TAB PO SCH (06:00)
[2018-06-23] MEDS ORDERED: PROBENECID 500 MG TAB PO SCH (09:00)
[2018-06-23] MEDS: INSULIN REGULAR HUMAN 100 UNIT/ML UNIT SC SCH ×2 (09:06→12:46)
[2018-06-23] MEDS: METOPROLOL TARTRATE 25 MG TAB PO SCH (09:15)
[2018-06-23] MEDS: metFORMIN HCL 500 MG TAB PO SCH (09:15)
[2018-06-23 11:29] VITALS: BP 130/71
--- NOTE | 2018-06-23 11:52 | GOP ---
[f rep st] OPERATIVE REPORT DATE OF OPERATION: 06/22/2018 SURGEON: Antwon Lakhani MD ANESTHESIA: General endotracheal. PREOPERATIVE DIAGNOSIS: Large volume left nephrolithiasis (greater than 2 cm). POSTOPERATIVE DIAGNOSIS: Large volume left nephrolithiasis (greater than 2 cm). PROCEDURE PERFORMED: 1. Percutaneous nephrostolithotomy greater than 2 cm with fluoroscopic guidance greater than 1 hour. 2. Left-sided nephrostomy tube replacement. FINDINGS: Large (greater than 2 cm) calculus encompassing the renal pelvis with a portion of the calculus extending into a lower pole anterior calyx, which I was unable to treat through my existing access today. SPECIMENS: Left renal calculus fragments. ESTIMATED BLOOD LOSS: Approximately 50 cc. INDICATIONS: This gentleman was recently found to have a sizable left renal calculus and has been having symptoms related to this calculus. It was deemed to be too large to treat with extracorporeal shock wave lithotripsy. Therefore , the patient underwent left-sided nephrostomy tube placement in Interventional Radiology yesterday in anticipation of percutaneous nephrostolithotomy today. The indications for the procedures as well as potential risks and complications were discussed with the patient preoperatively. He appeared to understand, his questions were answered, and he wished to proceed. Written informed surgical consent was thereafter obtained. DESCRIPTION OF PROCEDURE: The patient was brought to the operating room and administered general endotracheal anesthesia. Jenkins catheter was placed to bag drainage successfully. The patient was then turned over into the prone position carefully. All appropriate pressure points were padded. The patient' s left back and nephrostomy tube were then sterilely prepped and draped in standard fashion. Dr. Acosta from Interventional Radiology then proceeded to place a working 32-[place]izen [place] nephroscopic sheath, along with a balloon occlusion catheter was positioned just distal to the ureteropelvic junction. I then began the operative portion of the procedure by inserting a rigid nephroscopic sheath. I was ultimately able to identify a sizable portion of the calculus within the renal pelvis. I used an ultrasonic Lithotripter to fragment this large calculus and then extracted the pieces carefully using grasping forceps. The majority of the calculus was treated in this fashion. There was 1 fragment remaining that extended into an adjacent calyx relative to where my working nephroscopic sheath was located. This calyx was more anteriorly located. I was unable to visualize this calculus with the rigid nephroscope. Therefore, a flexible cystoscope was utilized. I was able to visualize the calculus by almost making an almost 180 degree turn from my working nephroscopic sheath to the calyx where this remaining calculus was located. On fluoroscopic imaging, the remaining portion of calculus could be visualized. It should be mentioned that intermittent spot C-arm fluoroscopic imaging was used throughout the percutaneous nephrostolithotomy portion of the procedure to aid with localization of the instrumentation and calculus burden. In regards to the remaining calculus in the adjacent calyx, I used a combination of flexible grasping forceps, a stone basket, as well as 275 micron and 200 micron holmium laser fibers in an effort to try and either displace the calculus into a more easily accessible location or fragment it in situ with laser. However, because of the severe angulation necessary to visualize the stone, and the tight space with which the remaining stone fragment resided within this calyx, I was unable to further treat it nor manipulate it. I decided to terminate the procedure at this time. The working nephroscopic sheath and balloon occlusion catheter were removed. Under fluoroscopic guidance, I then placed an 8.5[place] nephrostomy tube and positioned it fluoroscopically within the renal pelvis. The pigtail was deployed and locked in position. The nephrostomy tube irrigated easily with return of pink-tinged urine. The nephrostomy tube was secured to the skin with a 2-0 silk suture and then dressed appropriately with a ski slope dressing followed by 4x4s and Tegaderm. The nephrostomy tube was connected to bag drainage. The patient was turned back over to the supine position, then awakened, extubated, transferred to his bed, then taken to the recovery room. He tolerated the procedure well overall. COMPLICATIONS: None. DISPOSITION: He was transferred to the recovery room in stable condition and will be admitted overnight for postoperative care. /[id number]/MODL MTDD
--- NOTE | 2018-06-23 13:22 | PDHOMEO2F ---
Home Oxygen Face to Face Home Orders: I certify that a physician or a nurse practitioner or physician's anesthesiology physician assistant has had a [id number] encounter with this patient on the date of this order due to the diagnosis listed, which relates to the primary reason the patient requires home oxygen. Alternative treatments have been tried, or considered, and deemed ineffective. It is anticipated that supplemental oxygen will result in improvement with treatment. Home oxygen qualifying diagnosis: Hypoxia SpO2 on room air (%): 84 Frequency of home oxygen needed: continuous Home oxygen liters per minute: 2 Home oxygen delivery device: nasal cannula Concentrator: Yes E-tanks for mobility and back up: Yes If ordering portable O2, is the patient mobile in the home?: Yes I certify that, based on these findings, the home oxygen is medically necessary for this patient for the following length of time. Length of time home oxygen needed: 1 week
--- NOTE | 2018-06-23 13:28 | SOAPPROG ---
SOAP Progress Note Assessment/Plan: Assessment: 1. POD 1 s/p left PCNL - stable, doing well. 2. Postop hypoxia Plan: 1. Discharge w/ home O2. 2. FU on Tuesday in IR for nephrostogram & neph. tube removal. 3. FU w/ me in 1 month w/ CT scan. (d/c summ. # [id number]) Subjective: Mild left flank discomfort with deep inspiration. Otherwise, doing well. Nurses note decreased O2 sats on RA with resting and ambulation. Objective: Vital Signs Temp Pulse Resp BP Pulse Ox 37.6 C 86 16 130/71 H 93 06/23/18 11:27 06/23/18 11:27 06/23/18 11:27 06/23/18 11:27 06/23/18 11:27 Laboratory Results 06/23/18 04:37 06/23/18 04:37 06/22/18 06/23/18 06/24/18 05:59 05:59 05:59 Intake Total 1025 Output Total 1625 815 Balance -600 -815 Physical Exam - Physical Exam General Appearance: alert, no apparent distress, obese Abdomen: non-tender, soft Back: Other (urine nearly clear via neph. tube) Skin: warm/dry Extremities: non-tender Neuro/Psych: alert, normal mood/affect, oriented x 3 ICD10 Worksheet Patient Problems: Problems Problem Status Onset 2Nd degree AV block Acute 2nd degree Acute Osteoarthritis of right knee Acute Primary osteoarthritis of left knee Acute Ventricular arrhythmia Acute
--- NOTE | 2018-06-23 13:43 | GDS ---
[f rep st] DISCHARGE SUMMARY ADMITTING DIAGNOSIS: Large volume left nephrolithiasis. DISCHARGE DIAGNOSIS: Large volume left nephrolithiasis. PROCEDURES: Left-sided percutaneous nephrostolithotomy on 06/22/2018. HOSPITAL COURSE: Refer to the operative report for details regarding the procedure. Postoperatively, the patient did well. His main issue was postoperative hypoxia on room air, which n ecessitated discharging the patient on 2 L of home O2 by nasal cannula. Vital signs were stable, and he was afebrile. Postoperative laboratory work was stable. His nephrostomy tube drainage was gradu ally clearing during the postoperative period. He was otherwise doing well and ready for discharge o n postoperative day 1. He will be discharged on his regular medications as well as Erskine 5 mg p.r.n. pain. Arrangements have been made for the patient to follow up in Interventional Radiology next Tue day morning for nephrostogram and probable nephrostomy tube removal at that time. He will then need to follow up in my office in approximately 1 month with a noncontrast CT scan performed just prior to that visit. /[id number]/MODL
--- NOTE | 2018-06-23 15:45 | ASMTLACE ---
LACE Length of stay for Answers: 2 days current admission Acuity / Level of Answers: No Care: Did the patient have an inpatient admission? Comorbidities - select Answers: Coronary Artery Disease all that apply Diabetes (uncontrolled or controlled) Opioid dependence / Chronic pain Other Notes: HTN; Hypothyroid # of Emergency department Answers: 0 visits in the last 6 months Score: 10 Date Signed: 06/23/2018 03:45 PM Electronically Signed By:RICHIE Richards
--- NOTE | 2018-06-23 16:24 | ASMTCMCOM ---
CM Note CM Note Notes: Pt medically stable for d/c home with [facility]. Johanny is pt transport home. Pt had planned surgery, will d/c with new nephrostomy tube. No need for therapy evals. Pt declines a home inspector, states he and Johanny can handle to care for the nephrostomy tube. Pt is scheduled with IR Tuesday for nephrostogram and possible nephrostomy tube removal. Date Signed: 06/23/2018 04:23 PM Electronically Signed By:RICHIE Richards
[2018-06-23] MEDS ORDERED: ATORVASTATIN CALCIUM 20 MG TAB PO SCH (18:00)
[2018-06-24] MEDS ORDERED: LISINOPRIL 20 MG TAB PO SCH (06:00)
== END 2018-06-23 16:28 | disposition home or self-care (01) ==
LOC: INTOOBSV 10:12 → F1N 10:12
PROVIDERS: ADMIT Specialist; ATTEND Specialist
DX: N13.2 Hydronephrosis with renal and ureteral calculous obstruction (principal); R09.02 Hypoxemia; E11.9 Type 2 diabetes mellitus without complications; E03.9 Hypothyroidism, unspecified; Z95.0 Presence of cardiac pacemaker
CPT/HCPCS: 50081; 50435; 74485; 88300; C1725; C1729; C1769; C1894; J1644; J1956; J2250; J2405; J2704; J2765; J3010; Q9967; 82365-90

== ENCOUNTER → 2018-06-26 | Day surgery (SDC) | payer OTHER, MEDICARE | END | disposition home or self-care (01) | LOC: FIMAGING 08:02 | PROVIDERS: ATTEND Radiology Vascular & Interventional Radiology | PROC: BT1F1ZZ Fluoroscopy of Left Kidney, Ureter and Bladder using Low Osmolar Contrast (ICD-10-PCS; principal; 2018-06-26) | PROC: 0TP5X0Z Removal of Drainage Device from Kidney, External Approach (ICD-10-PCS; principal; 2018-06-26) | DX: Z43.6 Encounter for attention to other artificial openings of urinary tract (principal) | CPT/HCPCS: 50389; 74425; C1769 ==

== ENCOUNTER → 2018-07-15 | Outpatient (CLI) | payer OTHER, MEDICARE | LOC: FIMAGING 11:40 ==

== ENCOUNTER → 2018-08-14 | Outpatient (CLI) | payer OTHER, MEDICARE | LOC: FLAB 10:20 → FIMAGING 10:20 | DX: N20.0 Calculus of kidney (principal) ==